=== PATIENT | male | born 1990 | race Caucasian/White ===

== ENCOUNTER 2018-11-24 23:10 | Emergency (ER) | payer OTHER ==
[~2018-11-24] VITALS: Ht 172.7 cm; Wt 104.3 kg
[2018-11-24 23:14] VITALS: BP 137/86
[2018-11-24 23:17] VITALS: BP 137/86
--- NOTE | 2018-11-24 23:17 | NUR ---
TO LOBBY A/W BED, AMBULATORY, PATIENT ETOH
--- NOTE | 2018-11-24 23:38 | NUR ---
2338---1ST CALL, NO ANSWER. PATIENT LEFT WITHOUT BEING SEEN BY DR. HENNESSY. NO FURTHER CARE PROVIDED FOR PATIENT. 0005---2ND CALL, NO ANSWER 0016---3RD CALL, NO ANSWER.
== END 2018-11-24 23:38 | disposition left against medical advice (07) ==
LOC: MED 23:10
DX: M25.522 Pain in left elbow (principal); Z53.21 Procedure and treatment not carried out due to patient leaving prior to being seen by health care provider